=== PATIENT | male | born 1995 | race Two or more races ===

== ENCOUNTER 2018-01-22 02:04 | Emergency (ER) | payer MEDICAID, OTHER ==
[~2018-01-22] VITALS: Ht 152.4 cm; Wt 61.0 kg
[2018-01-22 07:30] LABS: CLARITY URINE CLOUDY (CLEAR); KETONES URINE NEGATIVE (NEGATIVE); LEUKOCYTE ESTERASE URINE 3+ (NEGATIVE); NITRITE URINE NEGATIVE (NEGATIVE); OCCULT BLOOD URINE TRACE (NEGATIVE); PROTEIN URINE TRACE (NEGATIVE); SPECIFIC GRAVITY URINE 1.017 (1.005-1.030)
[2018-01-22 07:41] LABS: COLOR URINE YELLOW (YELLOW)
[2018-01-22] MEDS ORDERED: AZITHROMYCIN 500 MG TABLET PO ONE (08:00)
[2018-01-22 09:00] VITALS: BP 119/58
[2018-01-24 04:16] LABS: CHLAMYDIA TRACHOMATIS NAA Negative (Negative); NEISSERIA GONORRHOEAE NAA Positive (Negative)
== END 2018-01-22 09:14 | disposition home or self-care (01) ==
LOC: ER 02:04
DX: N39.0 Urinary tract infection, site not specified (principal); R03.0 Elevated blood-pressure reading, without diagnosis of hypertension; F12.90 Cannabis use, unspecified, uncomplicated; Z88.0 Allergy status to penicillin; Z88.8 Allergy status to other drugs, medicaments and biological substances
CPT/HCPCS: 87077; 87491; 87591; 99284